=== PATIENT | female | born 1960 | race Two or more races ===

== ENCOUNTER 2024-09-05 08:56 | Outpatient (CLI) | payer OTHER | END 2024-09-05 09:00 | disposition home or self-care (01) | LOC: RAD 08:56 | PROVIDERS: ATTEND Orthopaedic Surgery | DX: M25.562 Pain in left knee (principal) ==

== ENCOUNTER → 2024-09-05 13:35 | Outpatient (CLI) | payer OTHER | END | disposition home or self-care (01) | LOC: LAB 13:35 | PROVIDERS: ATTEND Orthopaedic Surgery | DX: E55.9 Vitamin D deficiency, unspecified (principal); M85.9 Disorder of bone density and structure, unspecified; E56.1 Deficiency of vitamin K ==